=== PATIENT | male | born 1995 | race Caucasian/White ===

== ENCOUNTER → 2023-03-17 15:53 | Outpatient (BNVA) | payer OTHER, SELFPAY | PROVIDERS: Visit Provider Family Medicine | DX: J02.9 Acute pharyngitis, unspecified (principal); R50.9 Fever, unspecified; D69.6 Thrombocytopenia, unspecified; I51.4 Myocarditis, unspecified | CPT/HCPCS: 85025; 87071; 87880 ==

== ENCOUNTER → 2023-03-23 08:31 | Outpatient (BNVA) | payer OTHER, SELFPAY | PROVIDERS: PCP Family Medicine; Visit Provider Family Medicine | DX: I51.4 Myocarditis, unspecified (principal) | CPT/HCPCS: 85025 ==